=== PATIENT | female | born 1985 | race Two or more races ===

== ENCOUNTER 2024-06-13 23:43 | Emergency (ER) | payer OTHER ==
[~2024-06-13] VITALS: Ht 170.2 cm; Wt 61.2 kg
[2024-06-14] MEDS ORDERED: CEFAZOLIN SODIUM 1,000 MG VIAL IM STA (03:34)
[2024-06-14] MEDS ORDERED: TETANUS & DIPHTHERIA TOX,ADULT 0.5 ML VIAL IM STA (03:34)
[2024-06-14] MEDS ORDERED: CEFAZOLIN SODIUM 1,000 MG VIAL ONE (04:32)
[2024-06-14] MEDS ORDERED: DIPHTH,PERTUSS(ACELL),TET VAC 0.5 ML SYRINGE IM ONE (04:33)
== END 2024-06-14 04:34 | disposition home or self-care (01) ==
LOC: ER 23:46
DX: S61.412A Laceration without foreign body of left hand, initial encounter (principal); W25.XXXA Contact with sharp glass, initial encounter; Y93.89 Activity, other specified; Y92.89 Other specified places as the place of occurrence of the external cause; Y99.9 Unspecified external cause status

== ENCOUNTER 2024-06-24 17:36 | Emergency (ER) | payer OTHER ==
[~2024-06-24] VITALS: Ht 170.2 cm; Wt 61.2 kg
[2024-06-24 18:14] VITALS: BP 116/78; O2SAT 100
== END 2024-06-24 21:02 | disposition home or self-care (01) ==
LOC: ER 17:37
DX: Z48.02 Encounter for removal of sutures (principal)